=== PATIENT | male | born 1985 | race Asian ===

== ENCOUNTER 2016-06-22 13:59 | Emergency (ER) | payer MEDICAID ==
--- NOTE | 2016-06-22 16:15 | RAD ---
Clinical Indication: Swelling for several months with more recent pain. Comparison: None. Findings: Three views of the right shoulder. Bones: No fracture or dislocation. Joints: Unremarkable. Soft tissue: Soft tissue edema is identified superior to the shoulder and acromion. Limited evaluation of the right hemithorax: Unremarkable. Impression: Soft tissue swelling and edema superficial to the acromion and shoulder.
--- NOTE | 2016-06-22 16:18 | US ---
EXTREMITY UPPER RT NON VASC HISTORY: Soft tissue swelling overlying the right shoulder. Recent pain. COMPARISONS: Plain films earlier on the same day. FINDINGS: Multiple grayscale and color flow images during right soft tissue ultrasound are obtained. There is a thickened and edematous appearance to the soft tissues superficial to the acromion and AC joint. No focal, drainable fluid collection is present. No evidence of hyperemia is identified. On the right soft tissue measures approximately 20 mm overlying the acromion. On the left similar location soft tissue measures approximately 14 mm. IMPRESSION: Soft tissue edema and thickening without evidence of hyperemia or focal, drainable fluid collection. Findings were called to Dr. Damon at approximately 1613 hours on 06/22/2016.
== END 2016-06-22 16:44 | disposition home or self-care (01) ==
LOC: ED 13:59
DX: M25.511 Pain in right shoulder (principal)